=== PATIENT | female | born 1995 | race Native Hawaiian/Other Pacific Islander ===

== ENCOUNTER 2017-03-29 22:34 | Emergency (ER) | payer SELFPAY ==
--- NOTE | 2017-03-29 23:43 | C.PDOC ---
History Of Present Illness 22 yo female w/PMhx of anemia, come in for evaluation of fever, sore throat for past 2 days. Pt sts, today since AM gradually developed severe headache. Pt describes headache as bend-like, aching, severe. Otherwise, pt denies high fever , chills, dizziness, visual changes, focal deficits, N/V, drooling, neck pain, cough, CP, SOB, dyspnea, wheezing, abd. pain, back pain, UTI sx, rash, denies recent travel or sick contact. Ambulate to ED, appears in pain. Time Seen by Provider: 03/29/17 23:41 Chief Complaint (Nursing): Headache History Per: Patient Onset/Duration Of Symptoms: Gradual Past Medical History Reviewed: Historical Data, Nursing Documentation, Vital Signs Vital Signs: Last Vital Signs Temp 98.2 F 03/30/17 02:05 Pulse 90 03/30/17 02:05 Resp 18 03/30/17 02:05 BP 111/72 03/30/17 02:05 Pulse Ox 98 03/30/17 02:05 - Medical History PMH: Anemia Surgical History: No Surg Hx Family History: States: No Known Family Hx - Social History Hx Alcohol Use: Yes Hx Substance Use: No - Immunization History Hx Tetanus Toxoid Vaccination: No Hx Influenza Vaccination: No Hx Pneumococcal Vaccination: No Review Of Systems Except As Marked, All Systems Reviewed And Found Negative. Constitutional: Positive for: Fever. Negative for: Chills ENT: Positive for: Nose Congestion, Throat Pain, Throat Swelling. Negative for : Ear Discharge, Nose Discharge Cardiovascular: Negative for: Chest Pain, Edema, Light Headedness Respiratory: Negative for: Cough, Shortness of Breath, Wheezing Gastrointestinal: Negative for: Nausea, Vomiting, Abdominal Pain, Diarrhea Genitourinary: Negative for: Dysuria, Frequency Musculoskeletal: Negative for: Neck Pain, Back Pain Skin: Negative for: Rash Neurological: Positive for: Headache. Negative for: Weakness, Numbness, Altered Mental Status, Dizziness Physical Exam - Physical Exam Appears: Well, Non-toxic, No Acute Distress Skin: Normal Color, Warm, Dry, No Rash Eye(s): bilateral: PERRL Ear(s): Bilateral: Normal Nose: No Flaring, No Discharge Oral Mucosa: Moist, No Drooling Throat: Erythema (mild B/L), No Exudate, No Drooling Neck: Supple, Other ((-) meningeal sign) Cardiovascular: Rhythm Regular, No JVD Respiratory: No Decreased Breath Sounds, No Accessory Muscle Use, No Stridor, No Wheezing Gastrointestinal/Abdominal: Soft, No Tenderness, No Distention, No Guarding, No Rebound Back: No CVA Tenderness Extremity: Normal ROM, No Deformity, No Swelling Neurological/Psych: Oriented x3, Normal Speech, Normal Motor, Normal Sensation, Normal Reflexes ED Course And Treatment - Laboratory Results Result Diagrams: 03/30/17 00:00 03/30/17 00:00 Lab Interpretation: No Acute Changes Urine POC: Negative O2 Sat by Pulse Oximetry: 100 Pulse Ox Interpretation: Normal - CT Scan/US Head w/o contrast Other Rad Studies (CT/US): Radiology Report Reviewed CT/US Interpretation: no acute intracranial abdnormalities Progress Note: Pt was OBS in ED for 3 hours and reports moderate improvement in symptoms. On re-eavluation, pt is afebrile, hemodynamicaly stable. non-toxic. AMbulatory in ED with stable gait. Tolerate Po well in ED. PulseOx 100% RA. Head: AT/NC. neck: Supple, (-) meningeal sign. ENT: no acute finidngs. Lungs : CTA B/L, BS equal B/L. Abd: benign, (-) guarding, (-) rebound. back: (-) CVA tenderness. Neuorlogicaly intact. Blood work review and discussed with pt , pt has hx of anemia and reports " thats my normal numbers'. UA results c/w UTI. Head CT results- normal study. Rapid strep (-). Pt received Abx tx, Ucs- pending. Pt advised on course of ds. ref. to /[facility] in 2-3 dyas for re- evaluation. return to ED if any worsening or new changes. Disposition Counseled Patient/Family Regarding: Studies Performed, Diagnosis, Need For Followup, Rx Given - Disposition Referrals: [facility] [place] [Outside] Disposition: HOME/ ROUTINE Disposition Time: 01:55 Condition: STABLE Additional Instructions: Encourage fluids Take medication as prescribed Follow up with PMD in 2-3 days for re-evaluation. Return to ED if any worsening or new changes. Prescriptions: Cefdinir [Omnicef] 300 mg PO BID #14 cap Ibuprofen [Motrin Tab] 400 mg PO Q6 #14 tab Instructions: Acute Headache (ED), Urinary Tract Infection in Women (ED) Forms: [facility] [employer] [facility] (Green[place]ic) - Clinical Impression Clinical Impression: Headache, UTI (urinary tract infection)
[2017-03-29] MEDS ORDERED: Sodium Chloride 0.9% 1,000 ML IV ONE (23:48)
[2017-03-30 00:03] LABS: MONO # 0.6 K/uL (0.0-0.8); MONO % 6.4 % (0.0-10.0)
[2017-03-30 00:05] LABS: BASO % 0.3 % (0.0-2.0); HEMATOCRIT 30.9 % (34.0-47.0); LYMPH # 1.4 K/uL (1.0-4.3); LYMPH % 13.6 % (20.0-40.0); MEAN CORPUSCULAR HEMOGLOBIN 17.8 pg (27.0-31.0); MEAN CORPUSCULAR HGB CONC 29.8 g/dL (33.0-37.0); MEAN PLATELET VOLUME 8.8 fL (7.2-11.7); RED CELL DISTRIBUTION WIDTH 17.9 % (11.5-14.5)
[2017-03-30] MEDS ORDERED: Sodium Chloride 0.9% 1,000 ML ONE (00:06)
[2017-03-30 00:07] LABS: MEAN CELL VOLUME 59.8 fL (81.0-99.0)
[2017-03-30 00:11] LABS: CHLORIDE 99 mmol/L (98-107); SODIUM 139 mmol/L (132-148)
[2017-03-30 00:12] LABS: POTASSIUM 4.1 mmol/L (3.6-5.2); RBC URINE 1 /hpf (0-3); URINE BACTERIA RARE (<OCC); URINE BILIRUBIN NEGATIVE (NEGATIVE); URINE BLOOD NEGATIVE (NEGATIVE); URINE COLOR Yellow (YELLOW); URINE GLUCOSE (UA) NORMAL (Normal); URINE KETONE NEGATIVE (NEGATIVE); URINE LEUKOCYTE ESTERASE 1+ Leu/uL (Negative); URINE PROTEIN NEGATIVE (NEGATIVE); URINE UROBILINOGEN NORMAL mg/dL (0.2-1.0); WBC URINE 18 /hpf (0-5)
[2017-03-30 00:14] LABS: GFR AFRICAN-AMERICAN > 60
[2017-03-30 00:15] LABS: BLOOD UREA NITROGEN 8 mg/dL (7-17); CALCIUM 9.3 mg/dl (8.6-10.4); CARBON DIOXIDE 22 mmol/L (22-30); GLUCOSE,RANDOM 124 mg/dL (65-105)
[2017-03-30] MEDS ORDERED: cefTRIAXone IV 1 gm in Dextros 50 ML IVPB ONE (00:42)
--- NOTE | 2017-03-30 01:51 | CT ---
EXAM: CT Head Without Intravenous Contrast CLINICAL HISTORY: 22 years old, female; Pain; Headache TECHNIQUE: Axial computed tomography images of the head/brain without intravenous contrast. All CT scans at this facility use one or more dose reduction techniques, viz.: automated exposure control; ma/kV adjustment per patient size (including targeted exams where dose is matched to indication; i.e. head); or iterative reconstruction technique. COMPARISON: No relevant prior studies available. FINDINGS: Brain: No intracranial hemorrhage. No mass. No definite edema. Ventricles: No hydrocephalus. Bones/joints: No acute fracture. Soft tissues: Unremarkable. Sinuses: No acute sinusitis. Mastoid air cells: No mastoid effusion. Orbits: Unremarkable as visualized. IMPRESSION: 1. No acute intracranial abnormality.
[2017-03-30 02:06] VITALS: BP 111/72; PULSE 90; RESP 18; TEMP 98.2
[2017-03-30 02:31] VITALS: O2SAT 100
== END 2017-03-30 02:34 | disposition home or self-care (01) ==
LOC: C.ER 22:34
DX: N39.0 Urinary tract infection, site not specified (principal); R51 Headache
CPT/HCPCS: 70450; 80048; 81001; 84703; 85025; 87070; 87086; 87430; 96361; 96365; 96375; 99285; J0696; J1885; J2405; J2765; J7040